=== PATIENT | female | born 1970 | race Caucasian/White ===

== ENCOUNTER 2017-09-16 14:45 | Emergency (ER) | payer OTHER ==
[~2017-09-16] VITALS: Ht 162.6 cm; Wt 84.2 kg
[~2017-09-16 14:45] MED LIST: FLONASE16 G1 BOTH NARES
[2017-09-16 15:46] LABS: HEMATOCRIT 40.9 % (36.0-46.0); HEMOGLOBIN 14.1 G/DL (11.9-15.5); MCH 32.6 PG (29.0-34.0); MCHC 34.5 G/DL (30.0-36.0); MCV 94.5 FL (83-99); PLATELET COUNT 231 K/uL (156-360); RBC DIS.WIDTH-CV 11.8 % (11.8-14.6); RBC DIS.WIDTH-SD 41.3 % (39-53); RED BLOOD COUNT 4.33 M/uL (3.80-5.20)
[2017-09-16 16:06] LABS: TROP-I INTERPRETATION NEGATIVE; TROPONIN-I < 0.01 ng/mL (0.0-0.30)
[2017-09-16 17:12] LABS: CHLORIDE 109 MEQ/L (99-109); POTASSIUM 3.9 MEQ/L (3.7-5.4); SODIUM 141 MEQ/L (136-147)
[2017-09-16 17:18] LABS: CREATININE 0.7 MG/DL (0.6-1.3); GFR ESTIMATE (CALCULATED) > 59 mL/min/; GLUCOSE 84 mg/dL (70-99); UREA NITROGEN (BUN) 6 mg/dL (9-23)
[2017-09-16] MEDS ORDERED: ROBITUSSIN AC,T10 ML PO (17:51)
[2017-09-16] MEDS ORDERED: MEDROL DOSEPAK4 MG PO (17:51)
[2017-09-16] MEDS ORDERED: ZITHROMAX Z-PA250 MG PO (17:51)
[2017-09-16 18:11] VITALS: BP 144/83
== END 2017-09-16 18:13 | disposition home or self-care (01) ==
LOC: EME 14:45
PROVIDERS: Physician Assistant
DX: J40 Bronchitis, not specified as acute or chronic (principal)
CPT/HCPCS: 71046; 80048; 84484; 85027; 93005; 99281; 99284